=== PATIENT | male | born 1965 | race Caucasian/White ===

== ENCOUNTER 2023-10-18 08:04 | Outpatient (RCR) | payer OTHER, SELFPAY | END 2023-10-18 23:59 | disposition home or self-care (01) | LOC: RST 08:04 | PROVIDERS: ATTENDING PHYSICIAN Ophthalmology | DX: G20.A1 Parkinson's disease without dyskinesia, without mention of fluctuations (principal); R47.1 Dysarthria and anarthria | CPT/HCPCS: 92522 ==

== ENCOUNTER 2024-01-06 12:48 | Outpatient (RCR) | payer OTHER, SELFPAY | END 2024-01-06 23:59 | disposition home or self-care (01) | LOC: RST 12:48 | PROVIDERS: ATTENDING PHYSICIAN Ophthalmology | DX: G20.A1 Parkinson's disease without dyskinesia, without mention of fluctuations (principal); R47.1 Dysarthria and anarthria | CPT/HCPCS: 92507 ==

== ENCOUNTER 2024-01-18 07:05 | Outpatient (RCR) | payer OTHER, SELFPAY | END 2024-01-18 09:16 | disposition home or self-care (01) | LOC: RST 07:05 | PROVIDERS: ATTENDING PHYSICIAN Ophthalmology | DX: G20.A1 Parkinson's disease without dyskinesia, without mention of fluctuations (principal); R47.1 Dysarthria and anarthria | CPT/HCPCS: 92507 ==